=== PATIENT | male | born 2000 | race Hispanic/Latino ===

== ENCOUNTER 2024-08-13 19:37 | Emergency (ER) | payer OTHER, SELFPAY ==
[2024-08-13] MEDS ORDERED: Milk Of Magnesia 30 ML UDCUP ONE (20:28)
[2024-08-13] MEDS ORDERED: Lidocaine Viscous Sol 2% 15 ml UD Cup ONE (20:28)
== END 2024-08-13 21:40 | disposition home or self-care (01) ==
LOC: BURERS 19:37
DX: R10.10 Upper abdominal pain, unspecified (principal)
CPT/HCPCS: 99283